=== PATIENT | female | born 1950 | race Two or more races ===

== ENCOUNTER 2019-03-28 05:57 | Day surgery (SDC) | payer MEDICAID ==
[~2019-03-28] VITALS: Ht 152.4 cm; Wt 42.3 kg
[~2019-03-28 05:57] MED LIST: CYCLOPENTOLATE HCL 1% 2 ML OPHTHALMIC SOLUTION ONE; KETOROLAC TROMETHAMINE 0.5% 5 ML OPHTHALMIC SOLUTION ONE; MOXIFLOXACIN HCL 0.5% 3 ML OPHTHALMIC SOLUTION ONE; PHENYLEPHRINE HCL 2.5% 2 ML OPHTHALMIC SOLUTION ONE; RINGERS SOLUTION,LACTATED 500 ML IV ONE; TETRACAINE HCL/PF 0.5% 4 ML OPHTHALMIC SOLUTION ONE; TROPICAMIDE 1% 2 ML OPHTHALMIC SOLUTION ONE
[2019-03-28] MEDS ORDERED: LIDOCAINE/PF 1% 2 ML VIAL IM ONE (05:58)
[2019-03-28] MEDS ORDERED: HYALURONATE SODIUM 12 MG/ML 0.8 ML SYRINGE IO ONE (05:58)
[2019-03-28] MEDS ORDERED: EPINEPHrine 1:1,000 [1 MG/ML] AMP IM ONE (05:58)
[2019-03-28] MEDS ORDERED: PrednisoLONE ACETATE 1% 5 ML OPHTHALMIC SUSPENSION OS ONE (05:58)
[2019-03-28] MEDS ORDERED: POVIDONE-IODINE 10% 15 ML SOLUTION UD TP ONE (05:58)
[2019-03-28] MEDS ORDERED: HYALURONATE SOD/CHONDROITIN SOD 0.5 ML VIAL IO ONE (05:58)
[2019-03-28] MEDS ORDERED: NEOMYCIN/POLYMYXIN B/DEXAMETH 3.5 GM OPHTHALMIC OINTMENT OS ONE (05:58)
[2019-03-28] MEDS ORDERED: RINGERS SOLUTION,LACTATED 500 ML IV ONE (06:30)
[2019-03-28] MEDS ORDERED: EPINEPHrine 1:1,000 [1 MG/ML] AMP ONE (06:34)
[2019-03-28] MEDS: MOXIFLOXACIN HCL 0.5% 3 ML OPHTHALMIC SOLUTION OD SCH ×3 (06:46→06:58)
[2019-03-28] MEDS: CYCLOPENTOLATE HCL 1% 2 ML OPHTHALMIC SOLUTION OD SCH ×3 (06:46→06:58)
[2019-03-28] MEDS: TROPICAMIDE 1% 2 ML OPHTHALMIC SOLUTION OD SCH ×3 (06:46→06:58)
[2019-03-28] MEDS: KETOROLAC TROMETHAMINE 0.5% 5 ML OPHTHALMIC SOLUTION OD SCH ×3 (06:46→06:58)
[2019-03-28] MEDS: PHENYLEPHRINE HCL 2.5% 2 ML OPHTHALMIC SOLUTION OD SCH ×3 (06:46→06:58)
[2019-03-28] MEDS ORDERED: NEOMYCIN/POLYMYXIN B/DEXAMETH 3.5 GM OPHTHALMIC OINTMENT ONE (06:49)
[2019-03-28] MEDS ORDERED: LIDOCAINE/PF 1% 2 ML VIAL ONE (06:49)
[2019-03-28] MEDS ORDERED: TETRACAINE HCL/PF 0.5% 4 ML OPHTHALMIC SOLUTION OD ONE (07:00)
[2019-03-28 07:01] LABS: GLUCOMETER DEV NAME(LOC) SDS.; GLUCOSE,POINT OF CARE 104 MG/DL (70-110)
[2019-03-28] MEDS ORDERED: ROSU10TA22 PO (07:08)
[2019-03-28] MEDS ORDERED: ISOS30TA6 PO (07:08)
[2019-03-28] MEDS ORDERED: METF-445 PO (07:08)
[2019-03-28] MEDS ORDERED: LOSA50TA64 PO (07:08)
[2019-03-28] MEDS ORDERED: ASPI81TA87 PO (07:08)
[2019-03-28] MEDS ORDERED: AMLO10TA7 PO (07:08)
[2019-03-28] MEDS ORDERED: HYDR25TA PO (07:08)
[2019-03-28] MEDS ORDERED: AMLO5TAB9 PO (07:08)
[2019-03-28] MEDS ORDERED: EMPA10TA PO (07:08)
[2019-03-28] MEDS ORDERED: LEVO50 PO (07:08)
[2019-03-28] MEDS ORDERED: METO-558 PO (07:08)
[2019-03-28] MEDS ORDERED: TRAM50TA4 PO (07:08)
[2019-03-28] MEDS ORDERED: FentaNYL CITRATE-PF 100 MCG/2 ML VIAL IVP ONE (12:00)
[2019-03-28] MEDS ORDERED: MIDAZOLAM HCL 2 MG/2 ML VIAL IVP ONE (12:00)
== END 2019-03-28 08:45 | disposition home or self-care (01) ==
LOC: SURGERY 05:57
PROVIDERS: ATTEND Ophthalmology
DX: E11.36 Type 2 diabetes mellitus with diabetic cataract (principal); H25.11 Age-related nuclear cataract, right eye; I10 Essential (primary) hypertension; Z79.899 Other long term (current) drug therapy; Z95.1 Presence of aortocoronary bypass graft; Z98.890 Other specified postprocedural states
CPT/HCPCS: 66984; 82962; 93005; C1780; J0171; J2250; J3010; J3490 ×2; J7120

== ENCOUNTER 2019-05-02 05:41 | Day surgery (SDC) | payer MEDICAID ==
[~2019-05-02] VITALS: Ht 152.4 cm; Wt 42.3 kg
[~2019-05-02 05:41] MED LIST changes: +AMLO10TA7 PO; +AMLO5TAB9 PO; +ASPI81TA87 PO; +EMPA10TA PO; +HYDR25TA PO; +ISOS30TA6 PO; +LEVO50 PO; +LOSA50TA64 PO; +METF-445 PO; +METO-558 PO; +ROSU10TA22 PO; +TRAM50TA4 PO
[2019-05-02] MEDS ORDERED: FentaNYL CITRATE-PF 100 MCG/2 ML VIAL IVP ONE (05:42)
[2019-05-02] MEDS ORDERED: MIDAZOLAM HCL 2 MG/2 ML VIAL IVP ONE (05:42)
[2019-05-02] MEDS ORDERED: HYALURONATE SODIUM 12 MG/ML 0.8 ML SYRINGE IO ONE (05:42)
[2019-05-02] MEDS ORDERED: LIDOCAINE/PF 1% 2 ML VIAL IM ONE (05:42)
[2019-05-02] MEDS ORDERED: TETRACAINE HCL VISCOUS 0.5% 0.6 ML OPHTHALMIC SOLUTION OU ONE (05:42)
[2019-05-02] MEDS ORDERED: EPINEPHrine 1:1,000 [1 MG/ML] AMP IM ONE (05:42)
[2019-05-02] MEDS ORDERED: HYALURONATE SOD/CHONDROITIN SOD 0.5 ML VIAL IO ONE (05:42)
[2019-05-02] MEDS ORDERED: POVIDONE-IODINE 10% 15 ML SOLUTION UD TP ONE (05:42)
[2019-05-02] MEDS ORDERED: NEOMYCIN/POLYMYXIN B/DEXAMETH 3.5 GM OPHTHALMIC OINTMENT OU ONE (05:42)
[2019-05-02] MEDS ORDERED: RINGERS SOLUTION,LACTATED 500 ML IV ONE (06:00)
[2019-05-02] MEDS: CYCLOPENTOLATE HCL 1% 2 ML OPHTHALMIC SOLUTION OS SCH ×3 (06:47→07:01)
[2019-05-02] MEDS: PHENYLEPHRINE HCL 2.5% 2 ML OPHTHALMIC SOLUTION OS SCH ×3 (06:47→07:01)
[2019-05-02] MEDS: TETRACAINE HCL/PF 0.5% 4 ML OPHTHALMIC SOLUTION OS SCH ×3 (06:47→07:01)
[2019-05-02] MEDS: MOXIFLOXACIN HCL 0.5% 3 ML OPHTHALMIC SOLUTION OS SCH ×3 (06:48→07:01)
[2019-05-02] MEDS: KETOROLAC TROMETHAMINE 0.5% 5 ML OPHTHALMIC SOLUTION OS SCH ×3 (06:48→07:01)
[2019-05-02] MEDS: TROPICAMIDE 1% 2 ML OPHTHALMIC SOLUTION OS SCH ×3 (06:48→07:01)
[2019-05-02 06:51] LABS: GLUCOMETER DEV NAME(LOC) SDS.; GLUCOSE,POINT OF CARE 116 MG/DL (70-110)
[2019-05-02] MEDS ORDERED: LIDOCAINE/PF 1% 2 ML VIAL ONE (07:39)
== END 2019-05-02 08:45 | disposition home or self-care (01) ==
LOC: SURGERY 05:41
PROVIDERS: ATTEND Ophthalmology
DX: E11.36 Type 2 diabetes mellitus with diabetic cataract (principal); H26.8 Other specified cataract; I10 Essential (primary) hypertension; E03.9 Hypothyroidism, unspecified; Z79.899 Other long term (current) drug therapy; Z95.1 Presence of aortocoronary bypass graft; Z98.41 Cataract extraction status, right eye; Z96.1 Presence of intraocular lens; Z98.890 Other specified postprocedural states
CPT/HCPCS: 66984; 82962; C1780; J0171; J2250; J3010; J3490 ×2; J7120